=== PATIENT | male | born 1960 | race Caucasian/White ===

== ENCOUNTER 2019-02-23 21:55 | Emergency (ER) | payer BC ==
[~2019-02-23] VITALS: Ht 195.6 cm; Wt 117.0 kg
[2019-02-23] MEDS ORDERED: OMEPRAZOLE20 M3 PO (22:06)
[2019-02-23] MEDS ORDERED: EUTHYROX200 MCG PO (22:06)
[2019-02-23] MEDS ORDERED: CALCIUM500 MG PO (22:07)
[2019-02-23] MEDS ORDERED: SUPER THERAVIT1 EACH PO (22:07)
[2019-02-23 22:29] LABS: ABSOLUTE BASOPHILS 0.1 thou/uL (0.0-0.2); ABSOLUTE EOSINOPHILS 0.7 thou/uL (0.0-0.7); ABSOLUTE LYMPHOCYTES 2.4 thou/uL (0.8-5.3); ABSOLUTE MONOCYTES 0.9 thou/uL (0.0-1.2); ABSOLUTE NEUTROPHILS 7.8 thou/uL (1.6-8.1); BASOPHILS 0.7 %; EOSINOPHILS 6.3 %; HEMATOCRIT 37.6 % (42.0-52.0); HEMOGLOBIN 12.7 gm/dL (14.0-18.0); MCH 31.6 pg (26.0-34.0); MCHC 33.9 g/dL (28.0-37.0); MCV 93.4 fL (80.0-100.0); MONOCYTES 7.9 %; MPV 9.2 fl. (7.2-11.1); NUCLEATED RBCS 0 /100WBC; PLATELET COUNT* 197 thou/uL (150-400); POLYS 65.1 %; RBC 4.02 mil/uL (4.50-6.00); RDW-CV 13.4 % (10.5-14.5); WBC 11.9 thou/uL (4.0-11.0)
[2019-02-23 22:38] LABS: CALCIUM 9.3 mg/dL (8.5-10.1); CREATININE 1.9 mg/dL (0.6-1.3); POTASSIUM 4.1 mmol/L (3.5-5.1)
[2019-02-23 22:42] LABS: URINE BILIRUBIN NEGATIVE (Negative); URINE BLOOD NEGATIVE (Negative); URINE CLARITY CLEAR; URINE COLOR YELLOW; URINE GLUCOSE-RANDOM NEGATIVE (Negative); URINE KETONES NEGATIVE (Negative); URINE LEUKOCYTES-REFLEX NEGATIVE (Negative); URINE NITRITE-REFLEX NEGATIVE (Negative); URINE PROTEIN NEGATIVE (Negative); URINE SPECIFIC GRAVITY 1.015 (1.005-1.030); URINE UROBILINOGEN 0.2 E.U./dl (0.2-1.0)
[2019-02-23 22:42] LABS: ALBUMIN 3.7 g/dL (3.4-5.0); TOTAL BILIRUBIN 0.4 mg/dL (<0.1-1.0); TOTAL PROTEIN 7.4 g/dL (6.4-8.2)
[2019-02-24] MEDS ORDERED: NORCO 5-325 TA1 EAC1 PO (00:33)
[2019-02-24 00:45] VITALS: BP 123/72
== END 2019-02-24 00:51 | disposition home or self-care (01) ==
LOC: M.ERS 21:55
PROVIDERS: Nurse Practitioner Family
DX: N20.0 Calculus of kidney (principal); K82.8 Other specified diseases of gallbladder; Z88.0 Allergy status to penicillin